=== PATIENT | female | born 1985 | race Caucasian/White ===

== ENCOUNTER 2016-06-09 08:15 | Emergency (ER) | payer MEDICAID ==
[~2016-06-09] VITALS: Ht 160 cm; Wt 76.2 kg
[~2016-06-09 08:15] MED LIST: ALPR1TAB2 PO; BUSP15TA3 PO; ERYT500T74 PO
[2016-06-09 08:21] VITALS: BP_SYST 142
[2016-06-09 09:00] VITALS: BP_SYST 142
[2016-06-09] MEDS ORDERED: MAGNESIUM CITRATE 300 ML ORAL SOLUTION PO ONE (09:00)
== END 2016-06-09 09:00 | disposition home or self-care (01) ==
LOC: SED 08:15
DX: R11.2 Nausea with vomiting, unspecified (principal); R10.84 Generalized abdominal pain; K59.00 Constipation, unspecified
CPT/HCPCS: 81025; 99283

== ENCOUNTER 2016-11-14 08:14 | Emergency (ER) | payer MEDICAID ==
[~2016-11-14] VITALS: Ht 160 cm; Wt 72.6 kg
[2016-11-14 08:15] VITALS: BP_SYST 146
[2016-11-14 09:00] VITALS: BP_SYST 122
== END 2016-11-14 09:02 | disposition home or self-care (01) ==
LOC: SED 08:14
DX: J40 Bronchitis, not specified as acute or chronic (principal)
CPT/HCPCS: 81025; 99283

== ENCOUNTER 2017-03-02 07:53 | Emergency (ER) | payer MEDICAID ==
[~2017-03-02] VITALS: Ht 160 cm; Wt 72.6 kg
[2017-03-02 07:55] VITALS: BP_SYST 130
--- NOTE | 2017-03-02 07:55 | NUR ---
BROUGHT BACK TO BED #2 AND TRIAGED. REPORT GIVEN TO EJ
--- NOTE | 2017-03-02 08:00 | NUR ---
Pt came into the ER in stable condition. Pt c/o dry cough and migraines x1 1/2 wks. Pt stated that she has been coughing so frequently that she is having chest wall pain. -sob. No acute distress noted at this time, will continue to monitor
--- NOTE | 2017-03-02 08:13 | NUR ---
ER at bedside examining patient.
[2017-03-02 08:42] LABS: BASOPHILS % (AUTO) 0.5 % (0.0-2.0); EOSINOPHILS # (AUTO) 0.3 K/uL (0.0-0.4); EOSINOPHILS % (AUTO) 3.5 % (0.0-4.0); HEMATOCRIT 42.5 % (36-48); HEMOGLOBIN 13.9 g/dL (12.0-16.0); LYMPHOCYTES # (AUTO) 1.4 K/uL (1.0-5.5); LYMPHOCYTES % (AUTO) 16.3 % (20.5-51.5); MEAN CORPUSCULAR HEMOGLOBIN 29 pg (27-31); MEAN CORPUSCULAR HGB CONC 33 % (32-36); MEAN CORPUSCULAR VOLUME 90 fL (79.0-98.0); MONOCYTES # (AUTO) 0.6 K/uL (0.0-1.0); MONOCYTES % (AUTO) 6.5 % (1.7-9.3); NEUTROPHILS # (AUTO) 6.4 K/uL (1.8-7.7); NEUTROPHILS % (AUTO) 73.2 % (40.0-70.0); PLATELET COUNT (AUTO) 355 K/uL (130-430); RED BLOOD CELL COUNT(AUTO) 4.72 MIL/uL (4.2-6.2); RED CELL DISTRIBUTION WIDTH 11.8 % (9.0-15.0); WHITE BLOOD COUNT (AUTO) 8.8 K/uL (4.8-10.8)
[2017-03-02 08:55] LABS: CALCIUM 9.2 mg/dL (8.4-11.0); CREATININE 0.72 mg/dL (0.55-1.30); POTASSIUM 4.3 mmol/L (3.5-5.1)
[2017-03-02 09:08] LABS: ALBUMIN 3.5 g/dL (3.4-4.8); TOTAL BILIRUBIN 0.9 mg/dL (0.0-1.0)
[2017-03-02 09:28] VITALS: BP_SYST 125
--- NOTE | 2017-03-02 09:28 | NUR ---
Patient given written and verbal discharge instructions and verbalizes understanding. ER MD discussed with patient the results and treatment provided. Patient in stable condition. ID arm band removed. Rx of codeine/promethazine given. Patient educated on pain management and to follow up with PMD. Pain Scale 0. Opportunity for questions provided and answered.
== END 2017-03-02 09:28 | disposition home or self-care (01) ==
LOC: SED 07:53
DX: B34.9 Viral infection, unspecified (principal)
CPT/HCPCS: 36415; 71046; 80053; 85025; 86710; 99285

== ENCOUNTER 2017-03-29 14:14 | Emergency (ER) | payer MEDICAID ==
[~2017-03-29] VITALS: Ht 157.5 cm; Wt 74.4 kg
[2017-03-29 14:19] VITALS: BP_SYST 148
[2017-03-29] MEDS ORDERED: ACETAMINOPHEN 325 MG TABLET PO ONE (14:45)
[2017-03-29] MEDS ORDERED: IPRATROPIUM BROM 0.5 MG/2.5 ML VIAL.NEB (ATROVENT) IH ONE (14:45)
[2017-03-29] MEDS ORDERED: ALBUTEROL SULFATE 0.083% 2.5 MG/3 ML VIAL.NEB IH ONE (14:45)
[2017-03-29 14:47] LABS: BILIRUBIN,URINE NEGATIVE (NEGATIVE); BLOOD, URINE TRACE (NEGATIVE); CLARITY/URINE HAZY (CLEAR); COLOR,URINE YELLOW (YELLOW); GLUCOSE,URINE NEGATIVE (NEGATIVE); KETONES,URINE 3+ (NEGATIVE); LEUKOCYTE ESTERASE ,URINE 2+ (NEGATIVE); NITRITE, URINE NEGATIVE (NEGATIVE); PROTEIN URINE NEGATIVE (NEGATIVE); UROBILINOGEN,URINE 0.2 (0.2-1.0)
[2017-03-29 14:53] LABS: BASOPHILS # (AUTO) 0.1 K/uL (0.0-0.2); BASOPHILS % (AUTO) 0.8 % (0.0-2.0); EOSINOPHILS # (AUTO) 0.3 K/uL (0.0-0.4); EOSINOPHILS % (AUTO) 3.4 % (0.0-4.0); HEMATOCRIT 43.2 % (36-48); HEMOGLOBIN 14.1 g/dL (12.0-16.0); LYMPHOCYTES # (AUTO) 2.2 K/uL (1.0-5.5); LYMPHOCYTES % (AUTO) 23.3 % (20.5-51.5); MEAN CORPUSCULAR HEMOGLOBIN 30 pg (27-31); MEAN CORPUSCULAR HGB CONC 33 % (32-36); MEAN CORPUSCULAR VOLUME 91 fL (79.0-98.0); MONOCYTES # (AUTO) 0.7 K/uL (0.0-1.0); MONOCYTES % (AUTO) 7.8 % (1.7-9.3); NEUTROPHILS # (AUTO) 6.3 K/uL (1.8-7.7); NEUTROPHILS % (AUTO) 64.7 % (40.0-70.0); PLATELET COUNT (AUTO) 333 K/uL (130-430); RED BLOOD CELL COUNT(AUTO) 4.76 MIL/uL (4.2-6.2); RED CELL DISTRIBUTION WIDTH 11.7 % (9.0-15.0); WHITE BLOOD COUNT (AUTO) 9.6 K/uL (4.8-10.8)
[2017-03-29 14:54] LABS: BACTERIA,URINE FEW /HPF (None Seen); RBC,URINE 0-3 /HPF (0-3); WBC,URINE 0-3 /HPF (0-3)
[2017-03-29 15:05] LABS: CALCIUM 9.4 mg/dL (8.4-11.0); CREATININE 0.71 mg/dL (0.55-1.30); POTASSIUM 3.6 mmol/L (3.5-5.1)
[2017-03-29 15:20] LABS: BARBITURATE, URINE NEGATIVE (NEG <=200); BENZODIAZEPINE, URINE POSITIVE (NEG <=150); CANNABINOID, URINE POSITIVE (NEG <=50); COCAINE, URINE NEGATIVE (NEG <=150); METHAMPHETAMINES SCREEN,URINE NEGATIVE (NEG <=500); OPIATE, URINE POSITIVE (NEG <=100); PHENCYCLIDINE SCREEN,URINE NEGATIVE (NEG <=25); UR TRICYCLIC ANTIDEPRESSANTS NEGATIVE (NEG <=300); URINE AMPHETAMINE NEGATIVE (NEG <=500); URINE METHADONE NEGATIVE (NEG <=200); URINE OXYCODONE SCREEN NEGATIVE (NEG <=100); URINE PROPOXYPHENE SCREEN NEGATIVE (NEG <=300)
[2017-03-29] MEDS ORDERED: CIPROFLOXACIN HCL 500 MG TABLET PO ONE (16:15)
[2017-03-29] MEDS ORDERED: IBUPROFEN 600 MG TABLET PO ONE (16:15)
[2017-03-29] MEDS ORDERED: ONDANSETRON 4 MG ODT TAB PO ONE (16:15)
[2017-03-29 17:00] VITALS: BP_SYST 107
== END 2017-03-29 17:00 | disposition home or self-care (01) ==
LOC: SED 14:14
DX: J32.9 Chronic sinusitis, unspecified (principal); J40 Bronchitis, not specified as acute or chronic; N39.0 Urinary tract infection, site not specified
CPT/HCPCS: 36415; 70450; 71045; 80048; 80307; 81000; 81025; 84484; 85025; 93005; 94640; 99285; Q0162

== ENCOUNTER 2017-11-24 11:37 | Emergency (ER) | payer MEDICAID ==
[~2017-11-24] VITALS: Ht 157.5 cm; Wt 79.4 kg
[~2017-11-24 11:37] MED LIST changes: +ERYT-122 PO; -ERYT500T74 PO
[2017-11-24 11:49] VITALS: BP_SYST 148
[2017-11-24 12:40] LABS: BILIRUBIN,URINE NEGATIVE (NEGATIVE); CLARITY/URINE CLEAR (CLEAR); COLOR,URINE YELLOW (YELLOW); GLUCOSE,URINE NEGATIVE (NEGATIVE); KETONES,URINE TRACE (NEGATIVE); LEUKOCYTE ESTERASE ,URINE NEGATIVE (NEGATIVE); NITRITE, URINE NEGATIVE (NEGATIVE); PROTEIN URINE NEGATIVE (NEGATIVE); UROBILINOGEN,URINE 0.2 (0.2-1.0)
[2017-11-24 12:41] LABS: BLOOD, URINE TRACE (NEGATIVE)
[2017-11-24 12:42] LABS: BASOPHILS % (AUTO) 0.3 % (0.0-2.0); EOSINOPHILS # (AUTO) 0.2 K/uL (0.0-0.4); EOSINOPHILS % (AUTO) 2.7 % (0.0-4.0); HEMATOCRIT 41.5 % (36-48); LYMPHOCYTES # (AUTO) 1.7 K/uL (1.0-5.5); LYMPHOCYTES % (AUTO) 18.5 % (20.5-51.5); MEAN CORPUSCULAR HEMOGLOBIN 30 pg (27-31); MEAN CORPUSCULAR HGB CONC 34 % (32-36); MEAN CORPUSCULAR VOLUME 89 fL (79.0-98.0); MONOCYTES # (AUTO) 0.5 K/uL (0.0-1.0); NEUTROPHILS # (AUTO) 6.6 K/uL (1.8-7.7); NEUTROPHILS % (AUTO) 72.5 % (40.0-70.0); PLATELET COUNT (AUTO) 334 K/uL (130-430); RED BLOOD CELL COUNT(AUTO) 4.64 MIL/uL (4.2-6.2); RED CELL DISTRIBUTION WIDTH 11.7 % (9.0-15.0)
[2017-11-24 12:45] LABS: BACTERIA,URINE FEW /HPF (None Seen); MUCUS,URINE 1+ /LPF (None Seen); WBC,URINE 0-3 /HPF (0-3)
[2017-11-24 14:34] VITALS: BP_SYST 136
== END 2017-11-24 14:33 | disposition home or self-care (01) ==
LOC: SED 11:37
DX: O03.4 Incomplete spontaneous abortion without complication (principal); R03.0 Elevated blood-pressure reading, without diagnosis of hypertension; Z79.899 Other long term (current) drug therapy; Z3A.01 Less than 8 weeks gestation of pregnancy
CPT/HCPCS: 36415; 76801; 76817; 81000-TC; 84702-TC; 85025; 86900; 86901; 99285

== ENCOUNTER 2018-03-14 11:36 | Emergency (ER) | payer MEDICAID ==
[~2018-03-14] VITALS: Ht 160 cm; Wt 81.6 kg
[2018-03-14 11:36] VITALS: BP_SYST 150
[2018-03-14] MEDS ORDERED: KETOROLAC TROMETHAMINE 60 MG/2 ML VIAL IM ONE (12:15)
[2018-03-14 12:43] VITALS: BP_SYST 139
== END 2018-03-14 12:37 | disposition home or self-care (01) ==
LOC: SED 11:36
DX: G43.909 Migraine, unspecified, not intractable, without status migrainosus (principal)
CPT/HCPCS: 96372; 99283; J1885

== ENCOUNTER 2018-04-25 11:30 | Emergency (ER) | payer MEDICAID ==
[~2018-04-25] VITALS: Ht 157.5 cm; Wt 83.9 kg
[2018-04-25 11:45] VITALS: BP_SYST 130
[2018-04-25 13:18] VITALS: BP_SYST 130
== END 2018-04-25 13:18 | disposition home or self-care (01) ==
LOC: SED 11:30
DX: S19.89XA Other specified injuries of other specified part of neck, initial encounter (principal); V43.52XA Car driver injured in collision with other type car in traffic accident, initial encounter; Y93.89 Activity, other specified; Y92.410 Unspecified street and highway as the place of occurrence of the external cause; Y99.8 Other external cause status
CPT/HCPCS: 99281; 99282

== ENCOUNTER 2018-12-24 20:37 | Emergency (ER) | payer MEDICAID ==
[~2018-12-24] VITALS: Ht 160 cm; Wt 81.6 kg
[2018-12-24 20:50] VITALS: BP_SYST 145
--- NOTE | 2018-12-24 21:01 | NUR ---
Pt ambbulatory to [facility] for evaluation
[2018-12-24] MEDS ORDERED: MORPHINE 4 MG/ML INJ. SYRINGE IM ONE (22:15)
--- NOTE | 2018-12-24 23:07 | NUR ---
Dr. Cleary at bedside speaking to pt about results
[2018-12-24 23:45] VITALS: BP_SYST 145
--- NOTE | 2018-12-24 23:45 | NUR ---
Patient given written and verbal discharge instructions and verbalizes understanding. ER MD Dr. Cleary discussed with patient the results and treatment provided. Patient in stable condition. ID arm band removed. Patient educated on pain management and to follow up with PMD. Pain Scale 0/10. Opportunity for questions provided and answered. Medication side effect fact sheet provided.
== END 2018-12-24 23:45 | disposition home or self-care (01) ==
LOC: SED 20:37
DX: O26.891 Other specified pregnancy related conditions, first trimester (principal); R51 Headache; Z3A.00 Weeks of gestation of pregnancy not specified
CPT/HCPCS: 36415; 81025; 84702; 96372; 99283; J2270

== ENCOUNTER 2019-04-20 10:03 | Emergency (ER) | payer MEDICAID ==
[~2019-04-20] VITALS: Ht 160 cm; Wt 93.0 kg
[2019-04-20 10:03] VITALS: BP_SYST 137
--- NOTE | 2019-04-20 10:05 | NUR ---
Patient to ER bed 8 to gown for evaluation. Side rails up. Report given to Sweta RIOS.
--- NOTE | 2019-04-20 10:06 | NUR ---
Pt presents to ED c/o flu like symptoms with n/v/d, cough and body aches x 1 week.Pt sent to OB upon arrival for evaluation. Flu swab collected and sent.
--- NOTE | 2019-04-20 10:10 | NUR ---
ER at bedside examining patient.
[2019-04-20] MEDS ORDERED: NACL 0.9% 1,000 ML IV ONE (10:15)
--- NOTE | 2019-04-20 10:30 | NUR ---
Pt tolerated medication well.
[2019-04-20] MEDS ORDERED: ACETAMINOPHEN 325 MG TABLET PO ONE (11:00)
[2019-04-20] MEDS ORDERED: PREDNISONE 20 MG TABLET PO ONE (11:00)
[2019-04-20 11:19] VITALS: BP_SYST 124
--- NOTE | 2019-04-20 11:19 | NUR ---
Patient given written and verbal discharge instructions and verbalizes understanding. ER MD discussed with patient the results and treatment provided. Patient in stable condition. ID arm band removed. IV catheter removed intact and dressing applied, no active bleeding. Rx of azithromycin, promethazine HCL, prenisone given. Patient educated on pain management and to follow up with PMD. Pain Scale 0/10. Opportunity for questions provided and answered. Medication side effect fact sheet provided.
== END 2019-04-20 11:19 | disposition home or self-care (01) ==
LOC: SED 10:03 → EDSTATUS 10:03 → SED 11:19
DX: O26.892 Other specified pregnancy related conditions, second trimester (principal); O21.8 Other vomiting complicating pregnancy; J40 Bronchitis, not specified as acute or chronic; R19.7 Diarrhea, unspecified; Z3A.20 20 weeks gestation of pregnancy
CPT/HCPCS: 81002; 86710; 96360; 99283; J7030; J7512; 36415